=== PATIENT | female | born 1990 | race Caucasian/White ===

== ENCOUNTER → 2017-04-23 | Outpatient (CLI) | payer OTHER ==
--- NOTE | 2017-04-26 06:20 | CPEEG ---
[f rep st] ELECTROENCEPHALOGRAM EEG REPORT DATE OF STUDY: 04/23/2017 INTRODUCTION: This is a multi-channel EEG using the standard international 10-20 system of disc elec trode placement. A single EKG channel was monitored for the duration of the study. This study is un dertaken for the evaluation of spells of abnormal sensation and visual disturbance. No pertinent med ications to report. DURATION OF THE RECORDIN minutes. DESCRIPTION OF RECORDING: In the maximal alert state, the patient achieved a symmetric posterior dom inant rhythm of 10 hertz alpha activity that attenuated with eye opening. Activating measures includ ing photic stimulation, hyperventilation were performed. Photic stimulation resulted in a driving re sponse. Hyperventilation resulted in a mild and transient buildup. Drowsiness was observed as marke d by slow roving eye movements, anterior spread of alpha and waning of the background. No sleep arch itecture was observed. The EKG demonstrated normal sinus rhythm. INTERPRETATION: Normal awake and drowsy EEG. CLINICAL CORRELATION: No focal lateralizing epileptiform discharges. /[id number]/MODL
== END ==
LOC: FCPNEURO 08:56
PROVIDERS: ATTEND Psychiatry & Neurology Neurology
DX: H53.19 Other subjective visual disturbances (principal)